=== PATIENT | female | born 1990 | race Caucasian/White ===

== ENCOUNTER 2017-01-15 13:39 | Emergency (ER) | payer MEDICAID ==
[~2017-01-15] VITALS: Ht 160 cm; Wt 47.5 kg
[2017-01-15 13:48] VITALS: Ht 160 cm; Wt 47.5 kg
[2017-01-15] MEDS ORDERED: ACETAMINOPHEN 500 MG TAB PO STA (15:36)
[2017-01-15] MEDS ORDERED: METOCLOPRAMIDE 10 MG INJ IV ONE (16:00)
[2017-01-15] MEDS ORDERED: SOD CHLORIDE 0.9% 1,000 ML IV ONE (16:00)
[2017-01-15] MEDS ORDERED: DIPHENHYDRAMINE 50 MG INJ IV ONE (16:00)
[2017-01-15 16:09] LABS: ADD SCAN DIFF NO
[2017-01-15 16:10] LABS: ABNORMAL IP MESSAGE 1; BASOPHILS % 0.1 % (0.0-2.0); EOSINOPHILS % 0.1 % (0.0-7.0); HEMATOCRIT 35.3 % (37.0-47.0); HEMOGLOBIN 11.8 g/dl (12.0-16.0); LYMPHOCYTES # 0.4 10^3/ul (0.8-2.9); LYMPHOCYTES % 6.4 % (15.0-51.0); MEAN CORPUSCULAR HEMOGLOBIN 28.6 pg (29.0-33.0); MEAN CORPUSCULAR HGB CONC 33.4 g/dl (32.0-37.0); MEAN CORPUSCULAR VOLUME 85.5 fl (82.0-101.0); MEAN PLATELET VOLUME 9.9 fl (7.4-10.4); MONOCYTE # 0.5 10^3/ul (0.3-0.9); MONOCYTES % 7.1 % (0.0-11.0); NEUTROPHIL # 5.8 10^3/ul (1.6-7.5); NEUTROPHILS % 85.9 % (39.0-77.0); PLATELET COUNT 245 10^3/UL (140-415); RED BLOOD COUNT 4.13 10^6/ul (4.20-5.40); WHITE BLOOD COUNT 6.7 10^3/ul (4.8-10.8)
[2017-01-15 16:20] LABS: ADD UMIC YES; URINE BILIRUBIN (Dip) NEGATIVE (NEGATIVE); URINE BLOOD (Dip) TRACE (NEGATIVE); URINE COLOR LT. YELLOW (YELLOW); URINE GLUCOSE (Dip) NEGATIVE (NEGATIVE); URINE KETONES (Dip) NEGATIVE (NEGATIVE); URINE LEUKOCYTE ESTERASE (Dip) NEGATIVE (NEGATIVE); URINE NITRITE (Dip) NEGATIVE (NEGATIVE); URINE TOTAL PROTEIN (Dip) NEGATIVE (NEGATIVE); URINE UROBILINOGEN (Dip) 0.2 E.U./dL (0.1-1.0)
[2017-01-15 16:24] LABS: ALBUMIN/GLOBULIN RATIO 1.2
[2017-01-15 16:26] LABS: CREATININE 0.42 mg/dl (0.44-1.00); POTASSIUM 4.1 mmol/L (3.5-5.1)
[2017-01-15 16:27] LABS: ALBUMIN 4.1 g/dl (3.3-4.9); BILIRUBIN,INDIRECT 0.1 mg/dl (0-1.1); BILIRUBIN,TOTAL 0.1 mg/dl (0.2-1.3); CALCIUM 9.1 mg/dl (8.4-10.2); TOTAL PROTEIN 7.5 g/dl (6.1-8.1)
[2017-01-15 16:44] LABS: BACTERIA,URINE MANY; SQUAMOUS EPITHELIAL CELL,UR MANY; URINE RBCS 0-2 /HPF (0)
--- NOTE | 2017-01-15 17:14 | RADRPT ---
PROCEDURE: US OB. CLINICAL INDICATION: Vaginal pressure TECHNIQUE: Multiple sonographic images of the pelvis were obtained. Transabdominal imaging only w as performed. The images were reviewed on a PACS workstation. COMPARISON: No prior studies are available for comparison. FINDINGS: There is a twin intrauterine gestation. Twin A: Cardiac activity is present with 159 beats per minute. position is variable. Measurements were made in order to determine age. The results are as follows: BPD = 3.29 cm HC = 11.59 cm AC = 9.75 cm FL = 1.80 cm. Estimated gestational age of approximately 15 weeks 6 days. The estimated date of delivery is 07/03/2017. The EFW = 129.44 g, 87 %ile. The placenta is posterior. There is no evidence for an abruption or placenta previa. There are no adnexal masses. There is demise of twin B which demonstrates a crown-rump length of 2.2 cm. There are no feta l heart tones present. IMPRESSION: 1. Single live intrauterine gestation of approximately 15 weeks 6 days, by ultrasound criteria. 2. The estimated date of delivery is 07/03/2017. 3. The estimated weight is 129.44 g, 87th %ile. 4. demise of twin B with crown-rump length of 2.2 cm, corresponding to an estimated gestation al age 8-week 6 days. No heart tones are detected. RPTAT: HH .Jaylin Nagel MD, Date Time Electronically viewed and signed by .Jaylin Nagel MD, on 01/15/2017 17:13 .G/
[2017-01-15] MEDS ORDERED: ONDA4TAB8 PO (17:44)
[2017-01-15] MEDS ORDERED: TYL500 PO (17:44)
--- NOTE | 2017-01-15 17:49 | ERD ---
ER Documentation Chief Complaint Date/Time DATE: 01/15/17 TIME: 17:46 Chief Complaint n/v with knee pain for past 2 days, 14 weeks , no discharge HPI This is a 26-year-old female presents to the ER with multiple complaints. Patient is currently 14 weeks and states that she has had nausea and vomiting for the last 2 days. Patient also has body aches. Patient admits to headache. She denies getting a flu shot. Patient denies any fevers or chills. A0. Patient denies any vaginal bleeding or any vaginal discharge. Patient was with twins however one twin was already found to have no heart tones. ROS 12 point review of systems was done, all negative except per HPI. Medications Home Meds Active Scripts Acetaminophen* (Tylenol*) 500 Mg Tab, 1000 MG PO Q8H Y for PAIN AND OR ELEVATED TEMP for 3 Days, TAB Prov:MAREK DASH 01/15/17 Ondansetron Hcl* (Zofran*) 4 Mg Tablet, 4 MG PO Q6H for NAUSEA AND/OR VOMITING, #30 TAB Prov:MAREK DASH 01/15/17 Allergies Allergies: Coded Allergies: No Known Allergy (Unverified , 01/15/17) PMhx/Soc Medical and Surgical Hx: pt denies Medical Hx, pt denies Surgical Hx Hx Alcohol Use: No Hx Substance Use: No Hx Tobacco Use: No Smoking Status: Never smoker Physical Exam Vitals Vital Signs Date Time Temp Pulse Resp B/P Pulse Ox O2 Delivery O2 Flow Rate FiO2 01/15/17 13:48 97.8 110 18 109/59 97 Physical Exam GENERAL: The patient is well developed and appropriate for usual state of health , in no apparent distress. HEENT: Atraumatic. Conjunctivae are pink. Pupils equal, round, and reactive to light. Extraocular muscles are grossly intact. Bilateral tympanic membranes are clear with no evidence of erythema, effusion or dulling of the light reflex. The oropharynx is clear with no erythema or exudates. NECK: C-spine is soft and supple. There is no cervical lymphadenopathy.CHEST: Clear to auscultation bilaterally. There are no rales, wheezes or rhonchi. HEART: Regular rate and rhythm. No murmurs, clicks, rubs or gallops. ABDOMEN: Soft, nontender and nondistended. Good bowel sounds. No rebound or guarding. No gross peritonitis. No gross organomegaly or masses. No Dowling sign or McBurney point tenderness. BACK: No midline or flank tenderness. EXTREMITIES: Equal pulses bilaterally. There is no peripheral clubbing, cyanosis or edema. No focal swelling or erythema. Full range of motion. Grossly neurovascularly intact. Bilateral knees have full range of motion nontender to palpation. No erythema or edema. NEURO: Alert and oriented. Result Diagram: 01/15/17 1550 01/15/17 1550 Results 24 hrs Laboratory Tests Test 01/15/17 15:50 01/15/17 16:00 Alanine Aminotransferase (ALT/SGPT) 32IU/L Albumin 4.1g/dl Albumin/Globulin Ratio 1.20 Alkaline Phosphatase 48IU/L Anion Gap 16 Aspartate Amino Transf (AST/SGOT) 24IU/L Basophils # Pending Basophils % Pending Blood Urea Nitrogen 6mg/dl Calcium Level 9.1mg/dl Carbon Dioxide Level 24mmol/L Chloride Level 100mmol/L Creatinine 0.42mg/dl Direct Bilirubin 0.00mg/dl Eosinophils # Pending Eosinophils % Pending Globulin 3.40g/dl Glucose Level 92mg/dl Hematocrit 35.3% Hemoglobin 11.8g/dl Indirect Bilirubin 0.1mg/dl Lymphocytes # Pending Lymphocytes % Pending Mean Corpuscular Hemoglobin 28.6pg Mean Corpuscular Hemoglobin Concent 33.4g/dl Mean Corpuscular Volume 85.5fl Mean Platelet Volume 9.9fl Monocytes # Pending Monocytes % Pending Neutrophils # Pending Neutrophils % Pending Nucleated Red Blood Cells # Pending Nucleated Red Blood Cells % Pending Platelet Count 52455^3/UL Potassium Level 4.1mmol/L Red Blood Count 4.1310^6/ul Red Cell Distribution Width 13.0% Sodium Level 136mmol/L Total Bilirubin 0.1mg/dl Total Protein 7.5g/dl White Blood Count 6.710^3/ul Urine Bacteria MANY Urine Bilirubin NEGATIVE Urine Clarity SLIGHTLY CLOUDY Urine Color LT. YELLOW Urine Glucose NEGATIVE% Urine Hemoglobin TRACE Urine Ketones NEGATIVE Urine Leukocyte Esterase NEGATIVE Urine Microscopic RBC 0-2/HPF Urine Microscopic WBC 0-2/HPF Urine Nitrite NEGATIVE Urine Specific [place] 1.025 Urine Squamous Epithelial Cells MANY Urine Total Protein NEGATIVE Urine Urobilinogen 0.2 E.U./dL Urine pH 6.0 Current Medications Medications (Trade) Dose Ordered Sig/Randal Route PRN Reason Start Time Stop Time Status Last Admin Dose Admin Acetaminophen 1000 mg 1,000 mg ONCE STAT PO 01/15/17 15:36 01/15/17 15:39 DC 01/15/17 15:51 Sodium Chloride (NS) 1,000 ml @ 1,000 mls/hr Q1H ONCE IV 01/15/17 16:00 01/15/17 16:59 DC 01/15/17 15:49 Metoclopramide HCl (Reglan) 10 mg ONCE ONCE IV 01/15/17 16:00 01/15/17 16:01 DC 01/15/17 15:51 Diphenhydramine HCl (Benadryl) 25 mg ONCE ONCE IV 01/15/17 16:00 01/15/17 16:01 DC 01/15/17 15:51 Procedures/MDM This is a 26-year-old female presents to the ER with multiple complaints. Patient was given fluids in the ER and her blood work was checked. There was no evidence of electrolyte abnormality or leukocytosis. There is also no evidence of urinary tract infection. Suspicion for pyelonephritis is low. Patient's vital signs are stable I doubt sepsis or meningitis. Patient's body aches are likely viral in etiology. Patient's ultrasound was normal. Patient will be sent home with Zofran and Tylenol. Since follow-up with her primary care doctor in 1-2 days return to ER sooner if symptoms worsen. My medical decision-making should return with her [id number] they understand and agree with plan. Departure Diagnosis: Primary Impression: Myalgia Additional Impression: Nausea and vomiting Condition: Stable Patient Instructions: Nausea and Vomiting-Adult Additional Instructions: Call your primary care doctor TOMORROW for an appointment during the next 1-2 days.See the doctor sooner or return here if your condition worsens before your appointment time. MAREK DASH Jan 15, 2017 17:49
[2017-01-15 17:55] VITALS: BP 105/57; PULSE 65; RESP 16; TEMP 97.8
[2017-01-15 18:04] LABS: PLATELET ESTIMATE PLT APPEAR ADEQUATE
== END 2017-01-15 17:56 | disposition home or self-care (01) ==
LOC: FTE 13:39
DX: O99.89 Other specified diseases and conditions complicating pregnancy, childbirth and the puerperium (principal); M79.1 Myalgia; Z3A.15 15 weeks gestation of pregnancy
CPT/HCPCS: 76805; 80053; 81001; 85025; 87400; 96374; 96375; J1200; J2765; J7030; Z7502; Z7610; 81003

== ENCOUNTER 2017-06-16 15:31 | Outpatient (CLI) | payer MEDICAID ==
[~2017-06-16] VITALS: Ht 149.9 cm; Wt 62.7 kg
[~2017-06-16 15:31] MED LIST: ONDA4TAB8 PO; TYL500 PO
[2017-06-16 17:19] VITALS: Ht 149.9 cm; Wt 62.7 kg
[2017-06-16 17:23] VITALS: BP 121/69; PULSE 80; RESP 20
[2017-06-16] MEDS ORDERED: LACTATED RINGER'S 1,000 ML IV* STA (17:25)
--- NOTE | 2017-06-16 18:09 | RADRPT ---
PROCEDURE: US OB. CLINICAL INDICATION: 06/16/2017. TECHNIQUE: Multiple sonographic images of the uterus were obtained. The images were revi ewed on a PACS workstation. COMPARISON: No prior studies are available for comparison. FINDINGS: There is a single live intrauterine gestation. heart rate is 148 beats per minute. Measurements were made in order to determine age. The results are as follows: BPD = 8.88 cm. HC = 32.26 cm. AC = 31.28 cm. FL = 6.23 cm. Estimated weight is 2474 +/- 371 grams. LMP growth percentile is 26%. Menstrual age by ultrasound dates is 35 weeks 0 days. The estimated date of delivery is 07/21/2017. Position is cephalic and placenta is posterior grade 1. There is no evidence for an abruption or tim[place] cent[place] previa. IMPRESSION: 1. Single live intrauterine gestation of 35 weeks 0 days menstrual age by ultrasound dates. 2. The estimated date of delivery is 07/21/2017. RPTAT: QQ .Zhen De León MD, Date Time Electronically viewed and signed by .Zhen De León MD, on 06/16/2017 18:08 .R/
--- NOTE | 2017-06-16 18:16 | RADRPT ---
PROCEDURE: US biophysical profile. CLINICAL INDICATION: Decreased motion. TECHNIQUE: Multiple sonographic images of the uterus were obtained. The images were revi ewed on a PACS workstation. COMPARISON: No prior studies are available for comparison. FINDINGS: There is a single live intrauterine gestation. heart rate is 122 beats per minute. The position is cephalic. The placenta is fundal grade 1 with no abruption or previa. The SHER is 16.3 cm. (Normal = 5-20 cm.) Breathing Movement: 2 Gross Body Movement: 2 Tone: 2 Qualitative Amniotic Fluid Volume: 2 TOTAL: 8 IMPRESSION: 1. The biophysical score is 8/8. RPTAT: QQ .Zhen De León MD, MD Date Time Electronically viewed and signed by .Zhen De León MD, on 06/16/2017 18:16 .R/
[2017-06-16 18:21] LABS: ADD UMIC NO; UR ASCORBIC ACID 20 mg/dL (NEGATIVE); UR BILIRUBIN (Dip) NEGATIVE (NEGATIVE); UR BLOOD (Dip) NEGATIVE (NEGATIVE); UR CLARITY CLEAR (CLEAR); UR COLOR YELLOW (YELLOW); UR GLUCOSE (Dip) NEGATIVE (NEGATIVE); UR KETONES (Dip) NEGATIVE (NEGATIVE); UR LEUKOCYTE ESTERASE (Dip) NEGATIVE Leu/ul (NEGATIVE); UR NITRITE (Dip) NEGATIVE (NEGATIVE); UR SPECIFIC GRAVITY (Dip) 1.018 (1.003-1.030); UR TOTAL PROTEIN (Dip) NEGATIVE (NEGATIVE); UR UROBILINOGEN (Dip) NEGATIVE (NEGATIVE)
--- NOTE | 2017-06-16 19:37 | PN ---
Triage Information Date/Time Weeks of Gestation 36 weeks and 4 days : 1 Para: 0 Diabetes: none Hypertention: none Objective Vital Signs Date Time Temp Pulse Resp B/P Pulse Ox O2 Delivery O2 Flow Rate FiO2 06/16/17 17:23 98.1 80 20 121/69 Room Air Heart Rate: 120's Heart Rate Comments Overall Category I, one episode of haert deceleration after which tracing has been Category I BPP 06/28 SHER 16 Contractions: >10 Minutes Apart Results/Medications Results 24 hrs Laboratory Tests Test 06/16/17 17:30 Urine Color YELLOW Urine Clarity CLEAR Urine pH 7.0 Urine Specific [place] 1.018 Urine Ketones NEGATIVE Urine Nitrite NEGATIVE Urine Bilirubin NEGATIVE Urine Urobilinogen NEGATIVE Urine Leukocyte Esterase NEGATIVE Urine Hemoglobin NEGATIVE Urine Glucose NEGATIVE Urine Total Protein NEGATIVE Imaging Results EFW and BPP normal Assessment/Plan Patient reports good movement, not in labor. D/C home. Follow up NST on 06/17/2017. ALICE WATSON MD Jun 16, 2017 19:37
== END 2017-06-16 19:25 | disposition home or self-care (01) ==
LOC: OBT 15:31 → L-D 15:33 → OBT 19:25
PROVIDERS: ATTEND Obstetrics & Gynecology
DX: O26.893 Other specified pregnancy related conditions, third trimester (principal); Z3A.36 36 weeks gestation of pregnancy; R10.9 Unspecified abdominal pain
CPT/HCPCS: 76815; 76818; 81003; J7120; 36415; 96360; 96361; G0463

== ENCOUNTER 2017-06-17 11:08 | Outpatient (CLI) | payer MEDICAID ==
[~2017-06-17] VITALS: Ht 149.9 cm; Wt 63.4 kg
--- NOTE | 2017-06-17 13:19 | RADRPT ---
PROCEDURE: Limited OB ultrasound CLINICAL INDICATION: labor TECHNIQUE: Sonographic evaluation to assess the SHER was performed. Transabdominal imaging of the gravid uterus was performed. COMPARISON: No prior exam is available for comparison. FINDINGS: There is a single live intrauterine with a heart rate of 116 bpm. position is cephalic. The placenta is left lateral. The SHER measures 14.9 cm. IMPRESSION: The SHER measures 14.9 cm. RPTAT: HH .Jaylin Nagel MD, MD Date Time Electronically viewed and signed by .Jaylin Nagel MD, on 06/17/2017 13:18 .G/
--- NOTE | 2017-06-17 14:25 | QN ---
Documentation Comment iup 36 g1 po ucx vss exam wnl a/p iup 36 weeks false labor DARLEEN GOINS MD Jun 17, 2017 14:25
== END 2017-06-17 14:17 | disposition home or self-care (01) ==
LOC: OBT 11:08 → L-D 11:17 → OBT 14:17
PROVIDERS: ATTEND Obstetrics & Gynecology
DX: O62.9 Abnormality of forces of labor, unspecified (principal); O47.03 False labor before 37 completed weeks of gestation, third trimester; Z3A.36 36 weeks gestation of pregnancy
CPT/HCPCS: 76815; Z7500; G0463

== ENCOUNTER 2019-08-08 12:21 | Inpatient (IN) | payer OTHER ==
[~2019-08-08] VITALS: Ht 152.4 cm; Wt 58.9 kg
[~2019-08-08 12:21] MED LIST changes: -ONDA4TAB8 PO; +PREN-93 PO; -TYL500 PO
[2019-08-08 13:30] VITALS: BP 101/60; PULSE 89; RESP 18; Ht 152.4 cm; Wt 58.9 kg
[2019-08-08] MEDS ORDERED: METHYLERGONOVINE 0.2 MG INJ IM PRN (14:30)
[2019-08-08] MEDS ORDERED: OXYTOCIN 30 UNITS/LR 500 ML IV PRN (14:30)
[2019-08-08] MEDS ORDERED: MISOPROSTOL 200 MCG TAB PR PRN (14:30)
[2019-08-08] MEDS ORDERED: CARBOPROST 250 MCG INJ IM PRN (14:30)
[2019-08-08] MEDS ORDERED: LIDOCAINE 1% (MPF) 30 ML INJ INJ PRN (14:30)
[2019-08-08] MEDS ORDERED: OXYTOCIN 30 UNITS/LR 500 ML IV SCH ×2 (14:30)
[2019-08-08] MEDS ORDERED: LACTATED RINGER'S 1,000 ML IV PRN (21:39)
[2019-08-08] MEDS ORDERED: BUTORPHANOL 2 MG INJ IV PRN (22:00)
[2019-08-08] MEDS: LACTATED RINGER'S 1,000 ML IV SCH ×2 (22:08→22:13)
[2019-08-09] VITALS: BP 99/55; PULSE 80; RESP 18
[2019-08-09] MEDS ORDERED: ONDANSETRON 4 MG INJ IV STA (07:42)
[2019-08-09] MEDS ORDERED: ONDANSETRON 4 MG INJ IV PRN ×3 (08:00→11:30)
[2019-08-09] MEDS: LACTATED RINGER'S 1,000 ML IV SCH (08:03)
[2019-08-09] MEDS ORDERED: OXYTOCIN 30 UNITS/LR 500 ML IV SCH ×2 (09:00→14:56)
[2019-08-09] MEDS ORDERED: AZITHROMYCIN 500MG/NS (PMX) 250 ML IVPB ONE (10:30)
[2019-08-09] MEDS ORDERED: CEFAZOLIN 1 GM INJ ONE (10:41)
[2019-08-09] MEDS ORDERED: PHENYLephrine (100 MCG/ML) 5ML SYG ONE (10:41)
[2019-08-09] MEDS ORDERED: EPHEDrine 25 MG/5 ML SYG ONE (10:41)
[2019-08-09] MEDS ORDERED: METOCLOPRAMIDE 10 MG INJ ONE (10:42)
[2019-08-09] MEDS ORDERED: morphine SULFATE/PF (10 MG/10 ML) INJ ONE (11:08)
[2019-08-09] MEDS ORDERED: NALOXONE (0.4 MG/ML) INJ IV PRN (11:30)
[2019-08-09] MEDS ORDERED: METOCLOPRAMIDE 10 MG INJ IV PRN (11:30)
[2019-08-09] MEDS ORDERED: FENTAnyl 50 MCG/ML VIAL IV PRN ×2 (11:30)
[2019-08-09] MEDS ORDERED: KETOROLAC 30 MG INJ IV PRN (11:30)
[2019-08-09] MEDS ORDERED: HYDROmorphONE 0.5 MG/0.5 ML SYG IV PRN (11:30)
[2019-08-09] MEDS ORDERED: HYDROmorphONE 1 MG/5 ML IV SYRINGE IV PRN ×2 (11:30)
[2019-08-09] MEDS ORDERED: DIPHENHYDRAMINE 50 MG INJ IV PRN ×2 (11:30)
[2019-08-09] MEDS ORDERED: ALBUTEROL 0.083% (NEB) 2.5 MG/3 ML AMP HHN PRN (11:30)
[2019-08-09] MEDS ORDERED: CEFAZOLIN 2 GM/50 ML (PMX) 50 ML IVPB ONE (12:30)
[2019-08-09] MEDS ORDERED: TERBUTALINE 1 MG/ML INJ SC ONE (12:30)
[2019-08-09] MEDS: KETOROLAC 30 MG INJ IV PRN ×2 (13:20→20:02)
[2019-08-09 14:30] VITALS: BP 106/66; PULSE 104; RESP 18
[2019-08-09] MEDS ORDERED: LACTATED RINGER'S 1,000 ML IV SCH (14:56)
[2019-08-09 15:00] VITALS: BP 111/62; PULSE 69; RESP 18
[2019-08-09] MEDS ORDERED: OXYTOCIN 30 UNITS/LR 500 ML IV PRN (15:00)
[2019-08-09] MEDS ORDERED: MISOPROSTOL 200 MCG TAB PR PRN (15:00)
[2019-08-09] MEDS ORDERED: LANOLIN HPA 1 PKT TOP PRN (15:00)
[2019-08-09] MEDS ORDERED: OXYCODONE/ACETAMINOPHEN (5/325) TAB PO PRN (15:00)
[2019-08-09] MEDS ORDERED: CARBOPROST 250 MCG INJ IM PRN (15:00)
[2019-08-09] MEDS ORDERED: METHYLERGONOVINE 0.2 MG INJ IM PRN (15:00)
[2019-08-09] MEDS: HYDROmorphONE 0.5 MG/0.5 ML SYG IV PRN (15:54)
[2019-08-09 16:48] VITALS: BP 106/66; PULSE 116; RESP 18
[2019-08-09 20:00] VITALS: BP 101/60; PULSE 74; RESP 17
[2019-08-09] MEDS: SENNA/DOCUSATE NA (8.6MG/50MG) TAB PO SCH (21:30)
[2019-08-10] MEDS: HYDROmorphONE 0.5 MG/0.5 ML SYG IV PRN (01:29)
[2019-08-10] MEDS: KETOROLAC 30 MG INJ IV PRN ×2 (03:07→08:42)
[2019-08-10 04:00] VITALS: BP 92/55; PULSE 73; RESP 16
[2019-08-10] MEDS: IBUPROFEN 800 MG TAB PO SCH ×3 (06:00→21:39)
[2019-08-10 08:00] VITALS: BP 97/55; PULSE 78; RESP 17
[2019-08-10] MEDS: SENNA/DOCUSATE NA (8.6MG/50MG) TAB PO SCH ×2 (08:42→20:48)
[2019-08-10 11:44] VITALS: BP 100/53; PULSE 75; RESP 18
[2019-08-10] MEDS: OXYCODONE/ACETAMINOPHEN (5/325) TAB PO PRN ×2 (11:44→17:07)
[2019-08-10 16:34] VITALS: BP 91/54; PULSE 89; RESP 18
[2019-08-10 20:00] VITALS: BP 105/56; PULSE 91; RESP 19
[2019-08-11] MEDS: OXYCODONE/ACETAMINOPHEN (5/325) TAB PO PRN ×4 (00:15→17:45)
[2019-08-11 03:25] VITALS: BP 91/54; PULSE 88; RESP 20
[2019-08-11] MEDS: IBUPROFEN 800 MG TAB PO SCH ×3 (05:23→21:29)
[2019-08-11 08:00] VITALS: BP 94/51; PULSE 91; RESP 16
[2019-08-11] MEDS: SENNA/DOCUSATE NA (8.6MG/50MG) TAB PO SCH ×2 (09:23→21:29)
[2019-08-11 16:00] VITALS: BP 96/54; PULSE 87; RESP 18
[2019-08-11 20:50] VITALS: BP 98/55; PULSE 80; RESP 18
[2019-08-12 04:00] VITALS: BP 97/55; PULSE 67; RESP 18
[2019-08-12] MEDS: IBUPROFEN 800 MG TAB PO SCH (05:38)
[2019-08-12 08:40] VITALS: BP 94/55; PULSE 78; RESP 18
[2019-08-12] MEDS ORDERED: DIPHTH/TET/ACEL PERTUSS (ADULT) 0.5 ML VIAL IM* ONE (09:00)
[2019-08-12] MEDS: SENNA/DOCUSATE NA (8.6MG/50MG) TAB PO SCH (09:29)
[2019-08-12] MEDS: OXYCODONE/ACETAMINOPHEN (5/325) TAB PO PRN (09:30)
== END 2019-08-12 18:58 | disposition home or self-care (01) | DRG 788 ==
LOC: OBT 12:21 → L-D 12:23 → OBT 14:15 → L-D 14:34 → PP1 08-09 14:21
PROVIDERS: ADMIT Obstetrics & Gynecology; ATTEND Obstetrics & Gynecology
PROC: 10907ZC Drainage of Amniotic Fluid, Therapeutic from Products of Conception, Via Natural or Artificial Opening (ICD-10-PCS; 2019-08-09)
PROC: 10D00Z1 Extraction of Products of Conception, Low, Open Approach (ICD-10-PCS; principal; 2019-08-09 10:30)
DX: O82 Encounter for cesarean delivery without indication (principal); Z37.0 Single live birth; Z3A.39 39 weeks gestation of pregnancy
CPT/HCPCS: 36415; 76815; 76818; 82803; 85025; 85610; 85730; 86592; 86850; 86900; 86901; 87340; 88307; 99464; G0463; J0456; J0595; J0690; J1170; J1885; J2274; J2370; J2405; J2590; J2765; J3010; J7120